=== PATIENT | female | born 1945 | race Caucasian/White ===

== ENCOUNTER 2016-10-14 08:07 | Emergency (ER) | payer OTHER, MEDICAID ==
[~2016-10-14] VITALS: Ht 152.4 cm; Wt 41.0 kg
[2016-10-14 09:23] LABS: BG BASE EXCESS 0.5 mmol/L (-2.0-2.0); BG CARBOXYHEMOGLOBIN 0.3 % (0.5-1.5); BG DEOXYHEMOGLOBIN 4.2 % (0.0-5.0); BG FRACTION INSPIRED OXYGEN 21; BG HCO3 ACT 25.7 mmol/L (22.0-26.0); BG METHEMOGLOBIN 0.3 % (0.0-1.5); BG OXYGEN SATURATION 95.8 % (92.0-98.5); BG OXYHEMOGLOBIN 95.2 % (94.0-97.0); BG PCO2 43.3 mmHg (35.0-45.0); BG PH 7.391 (7.350-7.450); BG PO2 88.5 mmHg (75.0-100.0); BG SAMPLE SITE RIGHT RADIAL; BG TOTAL HEMOGLOBIN 12.1 g/dL (12.0-18.0); BG VENT MODE ROOM AIR
[2016-10-14 09:31] LABS: BASOPHILS % 0.7 % (0.0-2.0); EOSINOPHILS % 0.9 % (0.0-5.0); HEMATOCRIT. 33.8 % (36.0-48.0); HEMOGLOBIN. 11.4 g/dL (12.0-16.0); LYMPHOCYTES % 34.1 % (20.0-50.0); MEAN CORPUSCULAR HEMOGLOBIN 30.4 pg (28.0-32.0); MEAN CORPUSCULAR HGB CONC 33.8 g/dL (31.0-37.0); MEAN CORPUSCULAR VOLUME 89.7 fL (81.0-99.0); MEAN PLATELET VOLUME 7.1 fl (7.4-10.4); MONOCYTES % 4.5 % (2.0-8.0); NEUTROPHILS % 59.8 % (40.0-76.0); PLATELET 284 x1000/uL (130-400); RED BLOOD CELL COUNT 3.77 mill/uL (4.2-5.4); RED CELL DISTRIBUTION WIDTH 13.6 % (11.6-14.6); WHITE BLOOD COUNT 5.9 x1000/uL (4.5-11.0)
[2016-10-14 09:45] LABS: AMMONIA 15 uMol/L (<32); INDEX HEMOLYSI 1 (1-3)
[2016-10-14 09:49] LABS: ALANINE AMINOTRANSFERASE 16 IU/L (13-61); ALBUMIN 3.3 g/dL (3.4-5.0); ANION GAP 11; CALCIUM 8.8 mg/dL (8.5-10.1); CARBON DIOXIDE 30 mEq/L (21-32); CHLORIDE 102 mEq/L (98-107); CREATINE KINASE 88 IU/L (26-192); ETHANOL BLOOD < 10 mg/dL; INDEX HEMOLYSI 1 (1-3); INDEX ICTERIC 1 (1-4); INDEX LIPEMIC 1 (1-3); UREA NITROGEN BLOOD 14 mg/dL (7-21); eGFR > 60 mL/min (>60)
[2016-10-14 09:51] LABS: CARBAMAZEPINE < 0.5 ug/mL (4-12); PHENOBARBITAL < 2.1 ug/mL (15.0-40.0); PHENYTOIN < 0.4 ug/mL (10-20); VALPROIC ACID < 3.0 ug/mL (50-100)
[2016-10-14 09:52] LABS: LACTIC ACID 3.2 mmol/L (0.4-2.0)
[2016-10-14] MEDS ORDERED: SODIUM CHLORIDE 0.9% 500 ML IV ONE ×2 (09:54→11:17)
[2016-10-14 11:25] LABS: GLUCOSE URINE NEGATIVE (NEGATIVE); KETONES URINE NEGATIVE (NEGATIVE); LEUKOCYTE ESTERASE URINE NEGATIVE (NEGATIVE); NITRITE URINE NEGATIVE (NEGATIVE); OCCULT BLOOD URINE NEGATIVE (NEGATIVE); PROTEIN URINE 1+ (NEGATIVE); UROBILINOGEN URINE 0.2 E.U./dL (0.2-1.0)
[2016-10-14 11:26] LABS: CLARITY URINE TURBID (CLEAR); COLOR URINE YELLOW (YELLOW)
[2016-10-14 11:37] LABS: BACTERIA URINE TRACE; RBC URINE 0-2 /hpf (0-2); SQUAMOUS EPITHELIAL CELL URINE RARE /lpf (RARE/1+); WBC URINE 0-2 /hpf (0-2)
[2016-10-14 11:38] LABS: AMORPHOUS SEDIMENT URINE 2+ /lpf
[2016-10-14 11:54] LABS: *AMPHETAMINES SCREEN URINE NEGATIVE (NEGATIVE); *BARBITURATES SCREEN URINE NEGATIVE (NEGATIVE); *BENZODIAZEPINES SCREEN URINE NEGATIVE (NEGATIVE); *COCAINE SCREEN URINE NEGATIVE (NEGATIVE); CANNABINOID URINE SCREEN NEGATIVE (NEGATIVE); ECSTASY MDMA SCREEN URINE CONF.TEST INDICATED (NEGATIVE); METHADONE URINE SCREEN NEGATIVE (NEGATIVE); OPIATES URINE SCREEN NEGATIVE (NEGATIVE); PHENCYCLIDINE URINE SCREEN NEGATIVE (NEGATIVE)
[2016-10-14 12:22] VITALS: BP 111/64
== END 2016-10-14 12:38 | disposition home or self-care (01) ==
LOC: ER 09:03
DX: R56.9 Unspecified convulsions (principal); G30.9 Alzheimer's disease, unspecified; F02.80 Dementia in other diseases classified elsewhere, unspecified severity, without behavioral disturbance, psychotic disturbance, mood disturbance, and anxiety
CPT/HCPCS: 36415; 36600; 70450; 71010; 80053; 80156; 80165; 80184; 80185; 80305; 81001; 82140; 82375; 82550; 82805; 83605; 85025; 96360; 99285; G0482; J7040; J7030

== ENCOUNTER 2019-02-25 11:01 | Emergency (ER) | payer OTHER, MEDICAID ==
[~2019-02-25] VITALS: Ht 152.4 cm; Wt 41.0 kg
[2019-02-25] MEDS ORDERED: KEPP250 PO (11:16)
[2019-02-25] MEDS ORDERED: SODIUM CHLORIDE 0.9% 1000ML BAG (SEPSIS BOLUS) IV ONE (12:00)
[2019-02-25] MEDS ORDERED: LEVETIRACETAM 500MG PREMIX 100 ML IV ONE (12:00)
[2019-02-25 13:45] LABS: BASOPHILS % 0.7 % (0.0-2.0); EOSINOPHILS % 0.7 % (0.0-5.0); HEMATOCRIT. 35.5 % (36.0-48.0); HEMOGLOBIN. 12.1 g/dL (12.0-16.0); MEAN CORPUSCULAR HEMOGLOBIN 31.7 pg (28.0-32.0); MONOCYTES % 5.7 % (2.0-8.0); NEUTROPHILS % 70.9 % (40.0-76.0); PLATELET 305 x1000/uL (130-400); RED BLOOD CELL COUNT 3.81 mill/uL (4.2-5.4); RED CELL DISTRIBUTION WIDTH 13.6 % (11.6-14.6)
[2019-02-25 14:01] LABS: CHLORIDE 105 mEq/L (98-107)
[2019-02-25] MEDS ORDERED: LEVOFLOXACIN 750MG PREMIX 150 ML IV ONE (15:00)
[2019-02-25 21:55] VITALS: BP 120/67
== END 2019-02-25 21:41 | disposition short-term general hospital (02) ==
LOC: ER 11:01 → EDBEDREQTM 16:25 → EDBEDREQ 16:25 → CANBEDREQ 16:56 → ER 21:41
DX: A41.9 Sepsis, unspecified organism (principal); R41.82 Altered mental status, unspecified; R56.9 Unspecified convulsions; F03.90 Unspecified dementia, unspecified severity, without behavioral disturbance, psychotic disturbance, mood disturbance, and anxiety; Z98.890 Other specified postprocedural states
CPT/HCPCS: 36415; 70450; 71045; 80053; 83605; 84145; 84484; 85025; 93005; 96361; 96365; 96366; 96368; 99291; J1953; J1956; J7030